=== PATIENT | male | born 1960 | race African-American/Black ===

== ENCOUNTER 2020-04-27 14:10 | Inpatient (IN) | payer BC, MEDICARE, SELFPAY ==
--- NOTE | ~2020-04-27 | CT_ITS ---
EXAMINATION: CT chest w con EXAM DATE: 04/28/2020 09:43 INDICATION: Nodule noted on chest x-ray. TECHNIQUE: Spiral CT of the chest following intravenous injection of 75 mL Omnipaque 350. Axial, cor onal and sagittal images were reviewed. Coronal maximum intensity pixel images of chest reviewed. T crystal dose-length product (DLP) for this examination was 364.17 mGy-cm. The exposure was tailored accor ding to patient size (auto mA exposure control), and iterative reconstruction (ASIR) was used as olayinka tional dose reduction technique. Correlation is made to chest x-ray 04/27/2020. FINDINGS: No intraparenchymal correlate to the chest x-ray finding. There is a 3 mm nodule along a l eft minor fissure anteriorly most likely postinfectious. Some small dependent atelectasis/scarring. There are no pleural or pericardial effusions. Tracheobronchial tree is patent. There is no media stinal, hilar or axillary lymphadenopathy. There is no pneumothorax. Heart normal in size. Ther e is mild to moderate coronary arterial calcification, arterial sclerosis. Upper abdomen is unremark able. There is mild thoracic spondylosis without osteoblastic or osteolytic lesions identified. IMPRESSION: Small post infectious residua. No suspicious lung findings. Reviewed, dictated and finalized at location A.
--- NOTE | ~2020-04-27 | XR_ITS ---
EXAMINATION: XR chest 1V portable INDICATION: Hyperglycemia and confusion TECHNIQUE: Portable AP chest at 1453 hours COMPARISON: 07/11/2015 FINDINGS: A nodular opacity projects in the right lateral lung base. There is no pleural effusion or pneumothorax. The cardiomediastinal silhouette is normal. The visualized bones and soft tissues are u nremarkable. IMPRESSION: 1. Nodular opacity projecting in the right lateral lung base. Follow-up with nonemergent CT of the ch est is recommended. Reviewed, dictated and finalized at location A. IMPRESSION: 1. Nodular opacity projecting in the right lateral lung base. Follow-up with no nemergent CT of the chest is recommended.
[2020-04-27 14:18] VITALS: BP 111/71; PULSE 122; RESP 22; TEMP 37.1; O2SAT 99
[2020-04-27 14:41] LABS: Glucose Point of Care > 500 (65-105)
[2020-04-27] MEDS: SODIUM CHLORIDE 0.9% IV 1,000 ML 999 ML (14:53)
[2020-04-27 15:06] LABS: Basophils Percent Auto 0.3 % (0.2-1.2); Eosinophils Percent Auto 0.1 % (0-4.4); Hemoglobin 9.7 g/dL (14.0-18.0); Immature Granulocyte Absolute 0.03 K/mm3 (0.00-0.031); Immature Granulocyte Percent A 0.4 % (0-0.5); Lymphocytes Absolute Auto 0.62 K/mm3 (0.9-3.2); Lymphocytes Percent Auto 8.4 % (18.3-44.2); Mean Corpuscular HGB Conc 32.3 g/dl (32-36); Mean Corpuscular Hemoglobin 26.8 pg (26-34); Mean Corpuscular Volume 82.9 fl (80-100); Mean Platelet Volume 11.7 fl (7.4-10.4); Monocytes Absolute Auto 0.2 K/mm3 (0.1-0.6); Neutrophils Absolute Auto 6.5 K/mm3 (1.3-6.7); Neutrophils Percent Auto 87.8 % (45.5-73.1); Platelet Count Result 224 k/mm3 (150-375); Red Blood Count 3.62 M/mm3 (4.6-6.20); Red Cell Distribution Width 13.9 % (11.5-14.5); White Blood Count 7.4 K/mm3 (4.5-10.0)
[2020-04-27 15:23] LABS: Alanine Aminotransferase 24 U/L (4-50); Albumin Level 4.4 g/dL (3.5-5.1); Alkaline Phosphatase 126 U/L (38-126); Anion Gap 24.5 mmol/L (7-16); Aspartate Amino Transferase 29 U/L (17-59); Bilirubin,Total 0.7 mg/dL (0.2-1.3); Blood Urea Nitrogen 46 mg/dL (9-20); Calcium 9.4 mg/dL (8.4-10.2); Carbon Dioxide 16 mmol/L (22-30); Chloride 95 mmol/L (98-107); Estimated CRCL calculation 47 ml/min; Estimated Glomerular Filt Rate 54; Glucose 612 mg/dL (75-110); Magnesium 2.2 mg/dL (1.6-2.3); Phosphorus 5.2 mg/dL (2.5-4.5); Potassium 5.5 mmol/L (3.4-5.0); Sodium 130 mmol/L (137-145)
--- NOTE | 2020-04-27 15:26 | ECG_ITS ---
Measurements Intervals [place] Rate: 123 P: 35 NE: 147 QRS: -24 QRSD: 77 T: 42 QT: 286 QTc: 410 Interpretive Statements SINUS TACHYCARDIA EARLY PRECORDIAL R/S TRANSITION LOW QRS VOLTAGE IN PRECORDIAL LEADS CONSIDER INFERIOR INFARCT, AGE INDETERMINATE BASELINE WANDER- AVF, V1-V3 ABNORMAL ECG Electronically Signed On 04-27-2020 20:53:42 CDT by Von Walters D.O.
--- NOTE | 2020-04-27 15:27 | ED.GENADULT ---
HPI - General Adult General Chief complaint: Recheck/Abnormal Lab/Rx <JULIANE Carpenter Last Filed: 04/27/20 16:43> Stated complaint: elevated blood sugar <JULIANE Carpenter Last Filed: 04/27/20 16:43> Time Seen by Provider: 04/27/20 14:49 <JULIANE Carpenter Last Filed: 04/27/20 16:43> Source: patient <JULIANE Carpenter Last Filed: 04/27/20 16:43> Mode of arrival: ambulatory <JULIANE Carpenter Last Filed: 04/27/20 16:43> Limitations: no limitations <JULIANE Carpenter Last Filed: 04/27/20 16:43> History of Present Illness HPI narrative: Patient is a 59-year-old male who presents with for evaluation of hyperglycemia patient had gone to a family gathering last night and then came home around 8:00 was there for 4 hours after which around midnight he was noted to have an elevated sugar gave insulin when she heard the alarm going off on his insulin pump and then this morning and was found to have elevated sugar again and brought him into the emergency department for evaluation. <JULIANE Carpenter Last Filed: 04/27/20 16:43> Related Data Home medications: Home Medications Medication Instructions Recorded Confirmed amlodipine 10 mg tablet 10 mg PO DAILY 09/24/19 04/27/20 cyanocobalamin (vitamin B-12) 1,000 mcg PO DAILY 09/24/19 04/27/20 1,000 mcg capsule donepezil 10 mg tablet 10 mg PO DAILY 09/24/19 04/27/20 duloxetine 30 mg capsule,delayed 30 mg PO DAILY 09/24/19 04/27/20 release sprinkle insulin lispro [Humalog U-100 50 sliding scale dose SUB-Q DAILY 04/27/20 04/27/20 Insulin] <JULIANE Carpenter Last Filed: 04/27/20 16:43> Allergies/adverse reactions: Allergies Allergy/AdvReac Type Severity Reaction Status Date / Time No Known Allergies Allergy Verified 04/27/20 14:35 <JULIANE Carpenter Last Filed: 04/27/20 16:43> Review of Systems Review of Systems: All systems reviewed & are unremarkable except as noted in HPI and below <Anjel Mansfield PA-C - Last Filed: 04/27/20 16:43> PMFSH Past Medical History Medical History: Medical History (Updated 04/27/20 @ 18:18 by Joanne Solorzano PA-C) Chronic kidney disease, stage 3 (moderate) Baseline creatinine is around 1.50. Depression Dyslipidemia Stroke Type 1 diabetes mellitus Hemoglobin A1c was 9.4% in September 2019. <Anjel Mansfield PA-C - Last Filed: 04/27/20 16:43> Social History Social History: Social History Smoking status: Never smoker Alcohol intake: current Substance use: never Gender identity (if verbalized by the patient): Male Spiritual care concerns: No <Anjel Mansfield PA-C - Last Filed: 04/27/20 16:43> Exam Narrative: Exam Narrative: GENERAL: Well-appearing, well-nourished, and in no acute distress. HEAD: Normocephalic, atraumatic. EYES: PERRLA and EOMI. ENT: Nares clear, no rhinorrhea or epistaxis. Mucous membranes moist. Oropharynx without tonsillar hypertrophy exudate or other lesions. NECK: Supple. CHEST: Clear to auscultation. No respiratory distress. No wheezes rales or rhonchi HEART: Regular rate and rhythm. No murmur heard. Normal peripheral pulses. ABDOMEN: Soft, nontender, nondistended EXTREMITIES: Normal range of motion. No edema. SKIN: Warm, dry, no rash. NEURO: No focal deficits. Alert and oriented x3. Cranial nerves II through XII grossly intact PSYCH: Normal mood and affect. <Anjel Mansfield PA-C - Last Filed: 04/27/20 16:43> Course Course Emergency Course: Patient hydrated in the emergency department patient given fluids patient afebrile nontoxic-appearing aware of discussion with the financial services auditor and hospitalist service will be kept in hospital had his insulin pump turned off will have the drip initiated. Patient nontoxic-appearing is noted agreeing to stay in hospital patient did not end
[2020-04-27] MEDS: SODIUM CHLORIDE 0.9% IV 1,000 ML 999 ML IV CONT ×2 (15:35→16:56)
[2020-04-27 15:53] LABS: Base Excess ABG -13.6 mEq/l (+/-2.0); Carboxyhemoglobin 0.3 % THb (0-2.0); Fractional Inspired Oxygen 21 %; HCO3 ABG 12.4 mEq/l (22.0-26.0); Methemoglobin ABG 0.2 %THb (0-1.5); Oxygen Saturation ABG 94.4 % (95.0-100.0); Oxyhemoglobin 93.4 % THb (90.0-100.0); PCO2 ABG 28.9 mmHg (35.0-45.0); PO2 ABG 81.1 mmHg (80.0-100.0); PO2 FiO2 Ratio Arterial Blood 3.86 %; Reduced Hemoglobin 6.1 %THb (0-5.0); Total Hemoglobin 9.8 g/dL (12.0-18.0)
[2020-04-27 15:55] LABS: pH ABG 7.249 (7.350-7.450)
[2020-04-27 15:56] LABS: Device ROOM AIR; Modified Allen's Test Pass; Site Drawn LEFT RADIAL
[2020-04-27 16:36] LABS: Creatine Kinase 160 U/L (55-170)
[2020-04-27 16:37] LABS: Ethanol < 10 mg/dL (<10)
[2020-04-27] MEDS: INSULIN HUMAN REGULAR (*BKC) 100 UNITS in SODIUM CHLORIDE 0.9% IV 99 ML 11 UNITS IV CONT (16:56)
[2020-04-27 16:58] VITALS: BP 129/74; PULSE 117; RESP 17; O2SAT 97
[2020-04-27 17:05] LABS: Add Urine Microscopic? YES; Appearance Urine Clear (Clear); Bilirubin Urine Negative (Negative); Blood Urine Negative (Negative); Color Urine Straw (Yellow); Glucose Urine UA 3+ mg/dL (Negative); Ketones Urine 1+ mg/dL (Negative); Leukocyte Esterase Ur Negative LEU/UL (Negative); Nitrate Urine Negative (Negative); Protein Urine 1+ mg/dL (Negative); RBC Urine 0-2 /hpf (0-2); Specific Grav Ur 1.014 (1.001-1.035); Urobilinogen Urine Negative mg/dL (<2.0)
[2020-04-27 17:21] LABS: Glucose Point of Care > 500 (65-105)
[2020-04-27 18:10] VITALS: BP 117/88; PULSE 119; PULSE 120; RESP 22; TEMP 36.7; O2SAT 99
[2020-04-27 18:14] VITALS: BMI 21.7
--- NOTE | 2020-04-27 18:14 | ADMGEN ---
This patient, Nehemias Muse, was admitted to Intensive Care Unit-5. Patient/family oriented to hospital policies and general routines including ID bracelet, bed and alarms, visiting hours, pain management, procedures, bathroom and other care routines, personal items, smoking policy, room service/diet, and visiting hours. Valuables list has been completed. Information on how to activate the Rapid Response Team has been discussed. Patient/Family are encouraged to report perceived risks to care and to ask questions if they do not understand what they are told or what they should do.
[2020-04-27] MEDS: LACTATED RINGERS 1,000 ML 125 ML IV CONT (18:21)
--- NOTE | 2020-04-27 18:30 | PM.IMHP ---
H&P: HPI History of Present Illness Chief complaint: Hyperglycemia. Narrative: Nehemias Muse is a 59-year-old male with type 1 diabetes mellitus, history of diabetic ketoacidosis, anemia, hypertension, hyperlipidemia, and chronic kidney disease who presented to the emergency department earlier this afternoon for evaluation of hyperglycemia. Yesterday afternoon he was at his niece's birthday alliance party and may have had some dietary indiscretion as later that evening he had several alerts for hyperglycemia on his glucometer. His bolused him with insulin each time however his glucose continue to be elevated this morning and thus he was brought in for evaluation. He was found to be in diabetic ketoacidosis and is being admitted in this setting. With further questioning he does mention mild blurry vision, polydipsia, and polyuria but he otherwise feels okay. Specifically he denies fever, chills, sweats, cold and flu symptoms, chest pain, shortness of breath, nausea, vomiting, diarrhea, and dysuria. He has not had any recent illnesses and he denies nonhealing wounds. Review of Systems Review of Systems: Narrative: Twelve systems were reviewed with pertinent positives and negatives as per HPI. He denies palpitations and feelings of racing heart. No chest pain or pleuritic pain. No cough or shortness of breath. No recent travel. He denies sick contacts. No exposure to those positive for COVID-19. Except as documented, all other systems were reviewed and are negative. [facility] Past Medical History Medical History (Updated 04/27/20 @ 20:25 by Joanne Solorzano PA-C) Anemia in chronic kidney disease Cardiac arrest (06/30/15) In the setting acute kidney injury and hyperkalemia. Chronic kidney disease, stage 3 (moderate) Baseline creatinine is around 1.50. Depression Dyslipidemia Essential hypertension Stroke With residual memory loss. Type 1 diabetes mellitus Hemoglobin A1c was 9.4% in September 2019. Surgical History Surgical History (Updated 04/27/20 @ 20:25 by Joanne Solorzano PA-C) History of cardiac catheterization (~06/2015) Clean coronary arteries. No history of previous surgery Family History Family History Sibling Diabetes mellitus Hypertension Asthma Cerebrovascular accident Family history of hepatitis Malignant neoplasm of prostate Family history of attention deficit hyperactivity disorder (ADHD) Father Family history of alcoholism Family history of malignant neoplasm Mother Family history of arthritis, Onset Age: 85 Family history of malignant neoplasm Family history of heart disease in male family member before age 55 Social History Social History (Updated 04/27/20 @ 20:16 by Joanne Solorzano PA-C) Social History: The patient is and lives at home with his in [place]. They have no children. 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 He is a lifelong nonsmoker and denies alcohol and illicit substance abuse. He designates his , Gely Muse, as his surrogate decision maker and he wishes to be a full code. Spiritual care concerns: No Meds Home Medications and Allergies Home Medications Medication Instructions Recorded Confirmed Type amlodipine 10 mg tablet 10 mg PO DAILY 09/24/19 04/27/20 History cyanocobalamin (vitamin B-12) 1,000 mcg PO DAILY 09/24/19 04/27/20 History 1,000 mcg capsule donepezil 10 mg tablet 10 mg PO DAILY 09/24/19 04/27/20 History duloxetine 30 mg capsule,delayed 30 mg PO DAILY 09/24/19 04/27/20 History release sprinkle pen needle, diabetic 31 gauge x #400 each 10/02/19 04/27/20 Rx /16 atorvastatin 80 mg tablet 80 mg PO DAILY #90 tablet 10/05/19 04/27/20 Rx carvedilol 6.25 mg tablet 6.25 mg PO Q12H #90 tablet 10/05/19 04/27/20 Rx lisinopril 5 mg tablet 5 mg PO DAILY #90 tablet 10/05/19 04/27/20 Rx blood-glucose meter #1 each 11/22/19 04/27/20 Rx hydrochlorot
[2020-04-27 19:19] LABS: Glucose Point of Care 463 (65-105)
[2020-04-27 19:19] LABS: Glucose Point of Care 443 (65-105)
[2020-04-27 20:00] VITALS: BP 132/70; PULSE 113; PULSE 115; RESP 19; TEMP 36.8; O2SAT 99
[2020-04-27 20:18] LABS: Glucose Point of Care 371 (65-105)
[2020-04-27 20:54] LABS: Anion Gap 18.2 mmol/L (7-16); Blood Urea Nitrogen 50 mg/dL (9-20); Carbon Dioxide 18 mmol/L (22-30); Chloride 101 mmol/L (98-107); Estimated CRCL calculation 42 ml/min; Estimated Glomerular Filt Rate 54; Glucose 368 mg/dL (75-110); Magnesium 2.1 mg/dL (1.6-2.3); Potassium 4.2 mmol/L (3.4-5.0); Sodium 133 mmol/L (137-145)
[2020-04-27] MEDS: FAMOTIDINE 20 MG/2 ML VIAL IV PUSH (21:08)
[2020-04-27 21:14] VITALS: PULSE 114
[2020-04-27 21:14] LABS: Glucose Point of Care 306 (65-105)
[2020-04-27] MEDS: carvediloL 6.25 MG TABLET PO (21:14)
[2020-04-27 22:00] VITALS: BP 124/75; PULSE 108; RESP 12; O2SAT 100
[2020-04-27] MEDS: INSULIN HUMAN REGULAR (*BKC) 100 UNITS in SODIUM CHLORIDE 0.9% IV 99 ML 12.2 UNITS IV CONT (22:17)
[2020-04-27] MEDS: KCL 20 MEQ/D5/0.45% SOD CHL 1,000 ML 150 ML IV CONT (22:17)
[2020-04-27 23:11] LABS: Glucose Point of Care 223 (65-105)
[2020-04-28] VITALS (11 sets, daily range): BP systolic 95–140; BP diastolic 54–77; PULSE 88–107; RESP 16–20; TEMP 36.6–37.2; O2SAT 95–99; BMI 21.9
[2020-04-28 00:16] LABS: Glucose Point of Care 234 (65-105)
[2020-04-28 00:22] LABS: Glucose Point of Care 193 (65-105)
[2020-04-28 00:54] LABS: Anion Gap 11.3 mmol/L (7-16); Blood Urea Nitrogen 45 mg/dL (9-20); Calcium 8.9 mg/dL (8.4-10.2); Carbon Dioxide 22 mmol/L (22-30); Chloride 107 mmol/L (98-107); Estimated CRCL calculation 48 ml/min; Estimated Glomerular Filt Rate > 60; Glucose 185 mg/dL (75-110); Potassium 4.3 mmol/L (3.4-5.0); Sodium 136 mmol/L (137-145)
[2020-04-28 01:21] LABS: Glucose Point of Care 143 (65-105)
[2020-04-28] MEDS: INSULIN GLARGINE (*BKC) 100 UNITS/ML 13 UNITS SUB-Q ×2 (02:00→20:05)
[2020-04-28 02:04] LABS: Glucose Point of Care 98 (65-105)
[2020-04-28 02:27] LABS: Beta-Hydroxybutyrate/Acetoacetate 6.05 mmol/L (0.02-0.27)
[2020-04-28 03:13] LABS: Glucose Point of Care 127 (65-105)
[2020-04-28 04:27] LABS: Basophils Percent Auto 0.5 % (0.2-1.2); Eosinophils Absolute Auto 0.1 K/mm3 (0-0.3); Eosinophils Percent Auto 1.3 % (0-4.4); Hematocrit 24.7 % (42.0-52.0); Hemoglobin 8.6 g/dL (14.0-18.0); Immature Granulocyte Absolute 0.02 K/mm3 (0.00-0.031); Immature Granulocyte Percent A 0.2 % (0-0.5); Lymphocytes Absolute Auto 1.24 K/mm3 (0.9-3.2); Lymphocytes Percent Auto 14.6 % (18.3-44.2); Mean Corpuscular HGB Conc 34.8 g/dl (32-36); Mean Corpuscular Hemoglobin 27.8 pg (26-34); Mean Corpuscular Volume 79.9 fl (80-100); Mean Platelet Volume 10.5 fl (7.4-10.4); Monocytes Absolute Auto 0.9 K/mm3 (0.1-0.6); Monocytes Percent Auto 10.6 % (2.6-8.5); Neutrophils Absolute Auto 6.2 K/mm3 (1.3-6.7); Neutrophils Percent Auto 72.8 % (45.5-73.1); Platelet Count Result 209 k/mm3 (150-375); Red Blood Count 3.09 M/mm3 (4.6-6.20); Red Cell Distribution Width 13.6 % (11.5-14.5); White Blood Count 8.5 K/mm3 (4.5-10.0)
[2020-04-28 04:51] LABS: Alanine Aminotransferase 23 U/L (4-50); Albumin Level 3.3 g/dL (3.5-5.1); Alkaline Phosphatase 71 U/L (38-126); Anion Gap 10.5 mmol/L (7-16); Aspartate Amino Transferase 34 U/L (17-59); Bilirubin,Total 0.2 mg/dL (0.2-1.3); Blood Urea Nitrogen 44 mg/dL (9-20); Calcium 8.8 mg/dL (8.4-10.2); Carbon Dioxide 22 mmol/L (22-30); Chloride 108 mmol/L (98-107); Estimated CRCL calculation 45 ml/min; Estimated Glomerular Filt Rate 58; Glucose 95 mg/dL (75-110); Potassium 4.5 mmol/L (3.4-5.0); Sodium 136 mmol/L (137-145)
[2020-04-28 05:07] LABS: Glucose Point of Care 63 (65-105)
[2020-04-28 05:58] LABS: Glucose Point of Care 77 (65-105)
[2020-04-28 08:05] LABS: Glucose Point of Care 128 (65-105)
[2020-04-28] MEDS: CYANOCOBALAMIN 1,000 MCG TABLET 1000 MCG PO (08:42)
[2020-04-28] MEDS: ATORVASTATIN 40 MG TABLET 80 MG PO (08:42)
[2020-04-28] MEDS: DULoxetine HCL 30 MG CAPSULE.DR PO (08:42)
[2020-04-28] MEDS: carvediloL 6.25 MG TABLET PO ×2 (08:42→20:06)
[2020-04-28] MEDS: DONEPEZIL HCL 10 MG TABLET PO (08:43)
[2020-04-28] MEDS: amLODIPine BESYLATE 5 MG TABLET 10 MG PO (08:43)
[2020-04-28] MEDS: ENOXAPARIN 40 MG/0.4 ML SYRINGE SUB-Q (08:46)
[2020-04-28] MEDS: INSULIN ASPART (*BKC) 100 UNITS/ML SUB-Q ×4 (08:50→17:14)
[2020-04-28] MEDS: FAMOTIDINE 20 MG/2 ML VIAL IV PUSH (08:51)
[2020-04-28 09:12] LABS: Anion Gap 14.7 mmol/L (7-16); Blood Urea Nitrogen 40 mg/dL (9-20); Calcium 8.8 mg/dL (8.4-10.2); Carbon Dioxide 19 mmol/L (22-30); Chloride 103 mmol/L (98-107); Estimated CRCL calculation 52 ml/min; Estimated Glomerular Filt Rate > 60; Glucose 125 mg/dL (75-110); Potassium 4.7 mmol/L (3.4-5.0); Sodium 132 mmol/L (137-145)
--- NOTE | 2020-04-28 10:45 | PC.NURSE ---
1039-Pt. transferred to [facility] via [facility]. Pt. stable upon transfer.
--- NOTE | 2020-04-28 10:45 | PC.NURSE ---
This patient, Nehemias Muse, was received from ICU on 04/28/20 at 1046. Personal belongings list checked and signed. Patient/family oriented to unit policies and routines
[2020-04-28 11:37] LABS: Hemoglobin A1C 9.7 % (<5.7)
[2020-04-28 11:52] LABS: Glucose Point of Care 194 (65-105)
--- NOTE | 2020-04-28 12:53 | WPDCNINT ---
Assessment and Plan Assessment and plan (1) Diabetic ketoacidosis: Qualifiers: Diabetes mellitus type: type 1 Diabetes mellitus complication detail: without coma Qualified Code(s): E10.10 - Type 1 diabetes mellitus with ketoacidosis without coma Code(s): E11.10 - Type 2 diabetes mellitus with ketoacidosis without coma Status: Acute Assessment and Plan: patient presented with hyperglycemia after having excess food at a birthday republican, patient was hyperglycemic and the did give him some insulin boluses despite which the blood sugars remained elevated any presented the ED where he was found to be in diabetic ketoacidosis. - Patient was given adequate IV fluids and started on insulin infusion. anion gap closed early this morning And patient was transition to long-acting insulin sliding scale insulin. Patient was started on a diabetic diet - hemoglobin A1c is 9.7 - will continue Lantus (2) [id number] kidney injury: Code(s): N17.9 - Acute kidney failure, unspecified; N18.9 - Chronic kidney disease, unspecified Status: Acute Assessment and Plan: patient with acute on chronic kidney disease likely related to polyuria, hypovolemia - patient was given adequate IV fluids - creatinine down this morning to 1.3 from 1.6 on admission (3) Anemia in chronic kidney disease: Code(s): N18.9 - Chronic kidney disease, unspecified; D63.1 - Anemia in chronic kidney disease Status: Acute Assessment and Plan: patient with anemia of chronic disease likely due to chronic kidney disease. (4) Abnormal chest x-ray: Code(s): R93.89 - Abnormal findings on diagnostic imaging of other specified body structures Status: Acute Assessment and Plan: Nodular opacity projecting in the right lateral lung base noted on chest x-ray. - CT scan of the chest with contrast on 04/28/2020 showed Nodular opacity projecting in the right lateral lung base noted on chest x-ray. Additional Plan discussed with patient and updated with his condition and plan of care. Code status: Full code Critical care time spent: 37 minutes Due to a high probability of clinically significant, life threatening deterioration, the patient required my highest level of preparedness to intervene emergently and I personally spent this critical care time directly and personally managing the patient. This critical care time included obtaining a history; examining the patient; pulse oximetry; ordering and review of studies; arranging urgent treatment with development of a management plan; evaluation of patient's response to treatment; frequent reassessment; and discussions with other providers. It was exclusive of separately billable procedures and treating other patients and teaching time. Please see Assessment and Plan section and the rest of the note for further information on patient assessment and treatment Air Crew Member Consult Note Consult date: 04/28/20 Time Seen: 07:04 Reason for consult: diabetic ketoacidosis with hyperglycemia HPI: Nehemias Muse is a 59 year old male with history of type 1 diabetes, history of diabetic ketoacidosis, anemia, essential hypertension, hyperlipidemia, chronic kidney disease presented to the ED on 04/27/2020 with evaluation for hyperglycemia. Patient was able at a birthday republican and had more food than normal. He was found to have hyperglycemia on his Glucometer. Did bolus him with insulin but his glucose continue to be elevated. In the ER he was found to be in diabetic ketoacidosis, was given IV fluids, started on insulin infusion and transferred to the ICU for further management. He did complain of polydipsia, polyuria and blurring of vision. He denies any fevers, chills, abdominal pain, shortness of breath, cough. Not had any recent illness patient seen and examined this morning. Patient transition to long-acting insulin and sliding scale insulin earlier in the
[2020-04-28 16:46] LABS: Glucose Point of Care 341 (65-105)
--- NOTE | 2020-04-28 17:19 | PCDIET ---
DR TEAGUE NOTIFIED OF GLUCOSE 341, NEW ORDERS RECEIVED
--- NOTE | 2020-04-28 19:06 | PM.IMPN ---
Progress Note: A&P Assessment and Plan (1) Diabetic ketoacidosis: Qualifiers: Diabetes mellitus complication detail: without coma Diabetes mellitus type: type 1 Qualified Code(s): E10.10 - Type 1 diabetes mellitus with ketoacidosis without coma Code(s): E11.10 - Type 2 diabetes mellitus with ketoacidosis without coma Status: Acute Assessment and Plan: Present on admission with hyperglycemia, metabolic acidosis, and positive urine ketones. He was started on IV fluids and insulin drip and admitted to ICU on DKA protocol. AG 24.5 on admission but gap closed. He was transtioned to Sq insulin. Resume pump when available to help (2) Type 1 diabetes mellitus: Code(s): E10.9 - Type 1 diabetes mellitus without complications Status: Acute Assessment and Plan: A1c 9.7. Resume insulin pump when available. (3) Abnormal chest x-ray: Code(s): R93.89 - Abnormal findings on diagnostic imaging of other specified body structures Status: Acute Assessment and Plan: Nodular opacity projecting in the right lateral lung base noted on chest x-ray. CT of the chest showing no suspicious lung fiindings. (4) Chronic kidney disease, stage 3 (moderate): Code(s): N18.3 - Chronic kidney disease, stage 3 (moderate) Status: Acute Assessment and Plan: Cr 1.6 on admission with baseline around 1.5 . Related to DKA. With IV fluids, Cr improved to 1.3 today. Continue to follow. (5) Anemia in chronic kidney disease: Code(s): N18.9 - Chronic kidney disease, unspecified; D63.1 - Anemia in chronic kidney disease Status: Acute Assessment and Plan: Hemoglobin 10.4 back in September. Iron studies consistent with anemia of chronic disease. B12 and folate level was normal at that time. Patient appears to have chronic anemia. (6) Electrolyte abnormality: Code(s): E87.8 - Other disorders of electrolyte and fluid balance, not elsewhere classified Status: Acute Assessment and Plan: Related to the DKA with hyponatremia, hyperkalemia and metabolic gap acidosis. Sodium improved and potassium normal. Anion gap has closed. Continue to follow. (7) Essential hypertension: Code(s): I10 - Essential (primary) hypertension Status: Acute Assessment and Plan: Blood pressure reviewed on 04/28/2020. Blood pressure soft at times but overall well controlled. Continue Coreg and Norvasc. Subjective Date/time seen: 04/28/20 19:06 Interval history: 59yo male with DM here for hyperglycemia and found to be in DKA. Patient is alert but mildly confused. He denies any chest pain or shortness of breath. No nausea or vomiting. Eating. Denies any headache. He is normally on insulin pump but his is the one who manages this for him. Exam Narrative: Exam Narrative: AF 106 111/62 20 95% ra Gen - NARD Chest - CTA bilaterally, nml RR CV - RRR S1/S2 Abd - Soft, NT/ND, Positive BS Ext - No pedal edema Neuro - Alert and orientedx2 (location and Yr but not month or Maribel). Psych - Nml mood and affect Skin - Warm and dry Objective Data Vital Signs Vital Signs: Vital Signs - 24 hr 04/27/20 20:00 04/27/20 21:14 04/27/20 22:00 Temperature 98.3 F Pulse Rate 113 H 114 H 108 H Respiratory Rate 19 12 Blood Pressure 132/70 124/75 Pulse Oximetry 99 100 04/28/20 00:00 04/28/20 02:00 04/28/20 04:00 Temperature 98 F 98.9 F Pulse Rate 95 101 H 90 Respiratory Rate 16 19 16 Blood Pressure 95/54 L 118/77 96/59 L Pulse Oximetry 97 97 97
[2020-04-28 20:49] LABS: Glucose Point of Care 348 (65-105)
[2020-04-29] VITALS: BP 106/58; PULSE 98; RESP 18; TEMP 37; O2SAT 94
[2020-04-29] MEDS: INSULIN ASPART (*BKC) 100 UNITS/ML 10 UNITS SUB-Q (00:27)
[2020-04-29 00:44] LABS: Glucose Point of Care 387 (65-105)
[2020-04-29 02:51] LABS: Glucose Point of Care 234 (65-105)
[2020-04-29 05:58] VITALS: BP 115/67; PULSE 95; RESP 18; TEMP 36.5; O2SAT 95
[2020-04-29 07:44] LABS: Glucose Point of Care 128 (65-105)
[2020-04-29] MEDS: INSULIN ASPART (*BKC) 100 UNITS/ML SUB-Q (07:54)
[2020-04-29 08:00] VITALS: PULSE 92
[2020-04-29] MEDS: carvediloL 6.25 MG TABLET PO (08:00)
[2020-04-29 08:01] LABS: Anion Gap 10.1 mmol/L (7-16); Blood Urea Nitrogen 35 mg/dL (9-20); Calcium 8.9 mg/dL (8.4-10.2); Carbon Dioxide 23 mmol/L (22-30); Chloride 107 mmol/L (98-107); Estimated CRCL calculation 44 ml/min; Estimated Glomerular Filt Rate 54; Glucose 118 mg/dL (75-110); Potassium 4.1 mmol/L (3.4-5.0); Sodium 136 mmol/L (137-145)
[2020-04-29] MEDS: ENOXAPARIN 40 MG/0.4 ML SYRINGE SUB-Q (08:01)
[2020-04-29] MEDS: CYANOCOBALAMIN 1,000 MCG TABLET 1000 MCG PO (08:01)
[2020-04-29] MEDS: DULoxetine HCL 30 MG CAPSULE.DR PO (08:01)
[2020-04-29] MEDS: amLODIPine BESYLATE 5 MG TABLET 10 MG PO (08:01)
[2020-04-29] MEDS: DONEPEZIL HCL 10 MG TABLET PO (08:01)
[2020-04-29] MEDS: FAMOTIDINE 20 MG/2 ML VIAL IV PUSH (08:01)
[2020-04-29] MEDS: ATORVASTATIN 40 MG TABLET 80 MG PO (08:01)
[2020-04-29 11:26] LABS: Glucose Point of Care 163 (65-105)
[2020-04-29 13:23] VITALS: BP 126/62; PULSE 87; RESP 18; TEMP 36.4; O2SAT 98
--- NOTE | 2020-04-29 15:51 | PM.DS ---
DS: Admitting Diagnosis Admitting Diagnosis Admitting Diagnosis: Type 2 diabetes mellitus with ketoacidosis without coma DS: Discharge Diagnosis Discharge Diagnosis (1) Diabetic ketoacidosis: Qualifiers: Diabetes mellitus type: type 1 Diabetes mellitus complication detail: without coma Qualified Code(s): E10.10 - Type 1 diabetes mellitus with ketoacidosis without coma Code(s): E11.10 - Type 2 diabetes mellitus with ketoacidosis without coma Status: Acute Assessment and Plan: ------Present on admission with hyperglycemia, metabolic acidosis, and positive urine ketones. Likely due to dietary discretion. He was started on IV fluids and insulin drip and admitted to ICU on DKA protocol. Patient improved with this therapy and was able to be transferred out of the ICU. His gap closed the next day. His brought up his insulin pump. 12-6a he gets 0.5 units/hour, 6a 2000- 0.6 units/hour, [id number] 0.75 units/hour. She also does a carb ratio where she estimates the amount of carbs and places them into a category of low medium and high and boluses depending on that. His A1c is 9.7 in the routinely follow Dr. Kline. the plan is to follow-up with them and no additional changes will be done at this time. (2) Type 1 diabetes mellitus: Code(s): E10.9 - Type 1 diabetes mellitus without complications Status: Acute Assessment and Plan: ----- See above (3) Abnormal chest x-ray: Code(s): R93.89 - Abnormal findings on diagnostic imaging of other specified body structures Status: Acute Assessment and Plan: Nodular opacity projecting in the right lateral lung base noted on chest x-ray. CT of the chest showing no suspicious lung fiindings. (4) Chronic kidney disease, stage 3 (moderate): Code(s): N18.3 - Chronic kidney disease, stage 3 (moderate) Status: Acute Assessment and Plan: Cr 1.6 on admission with baseline around 1.5 . chronic kidney disease likely due to longstanding diabetes. Patient at baseline at discharge (5) Anemia in chronic kidney disease: Code(s): N18.9 - Chronic kidney disease, unspecified; D63.1 - Anemia in chronic kidney disease Status: Acute Assessment and Plan: Hemoglobin 10.4 back in September. Iron studies consistent with anemia of chronic disease. B12 and folate level was normal at that time. Patient appears to have chronic anemia. (6) Electrolyte abnormality: Code(s): E87.8 - Other disorders of electrolyte and fluid balance, not elsewhere classified Status: Acute Assessment and Plan: ----- improved, likely due to DKA on admission (7) Essential hypertension: Code(s): I10 - Essential (primary) hypertension Status: Acute Assessment and Plan: last blood pressure 126/62.Continue Coreg and Norvasc. DS: Summary Hospital Course Reason for hospitalization: DKA Hospital Course: patient is a 59-year-old male who presented emergency room for multiple episodes of hyperglycemia after being at a family gathering and eating more carbs than usual. The tried to bolus him at home but he still remained high so they came into the emergency room. Vital signs were temperature 98.8?, pulse 122, respiratory 22, blood pressure 111/71, pulse ox 99 on room air. Initial white blood cell count 7.4. BMP shows significant abnormalities with sodium 130, potassium 5.5, chloride 95, CO2 16, BUN Soledad 6 creatinine 1.6, glucose 612. Anion gap originally 24.5. Patient was admitted to the ICU and started on IV fluids, insulin and electrolytes were replaced. He did well with this therapy and his gap closed. He was able to transfer out of the ICU and did well. Please see above for further details. Patient was educated about the worrisome signs and symptoms come back to emergency room for was discharged stable condition. I spoke to on the phone as well.
== END 2020-04-29 18:07 | disposition home or self-care (01) | DRG 638 ==
LOC: ANHED 17:20 → ANHICU 17:32 → ANH2MED 04-28 12:57 → ANHICU 05-01 16:57
PROVIDERS: Emergency Medicine Emergency Medical Services; Internal Medicine; Internal Medicine Critical Care Medicine; Physician Assistant; Admitting Provider Family Medicine; Emergency Provider General Practice; PCP Internal Medicine; Visit Provider Physician Assistant
DX: E10.10 Type 1 diabetes mellitus with ketoacidosis without coma (principal); N17.9 Acute kidney failure, unspecified; D63.1 Anemia in chronic kidney disease; E87.8 Other disorders of electrolyte and fluid balance, not elsewhere classified; E10.22 Type 1 diabetes mellitus with diabetic chronic kidney disease; I12.9 Hypertensive chronic kidney disease with stage 1 through stage 4 chronic kidney disease, or unspecified chronic kidney disease; N18.3 Chronic kidney disease, stage 3 (moderate); E86.0 Dehydration; R93.89 Abnormal findings on diagnostic imaging of other specified body structures; E78.5 Hyperlipidemia, unspecified; I69.311 Memory deficit following cerebral infarction; Z79.4 Long term (current) use of insulin; Z96.41 Presence of insulin pump (external) (internal); Z86.74 Personal history of sudden cardiac arrest
CPT/HCPCS: 36415; 36600; 71045; 71260; 80048; 80053; 80307; 81001; 82010; 82375; 82550; 82805; 82948; 83036; 83050; 83735; 84100; 85025; 93005; 96361; 96365; 99291; A9270; J1650; J1815; J3480; J7030; J7120; Q9967

== ENCOUNTER 2020-04-30 23:26 | Inpatient (IN) | payer BC, MEDICARE, SELFPAY ==
[2020-04-30 23:34] VITALS: BP 137/73; PULSE 103; RESP 20; TEMP 36.9; O2SAT 96
[2020-04-30 23:40] LABS: Glucose Point of Care > 500 (65-105)
[2020-05-01] VITALS (14 sets, daily range): BP systolic 115–155; BP diastolic 61–99; PULSE 83–109; RESP 16–24; TEMP 36.6–37; O2SAT 94–100; BMI 20.9
--- NOTE | 2020-05-01 00:06 | ED.RECABL ---
HPI - Recheck/Abnormal Lab/Rx General Chief Complaint: Recheck/Abnormal Lab/Rx Stated Complaint: High blood sugar Time Seen by Provider: 04/30/20 23:38 Source: family Mode of arrival: ambulatory Limitations: dementia History of Present Illness HPI narrative: This patient is a 59 year old male who presents for evaluation high blood sugar. He was discharged yesterday after being hospitalized for DKA an hyperglycemia. PAtient started using an insulin pump 1 month ago that is controlled by his . His states today his blood sugars has been high all day. This morning she reports his blood sugar was reading 50 so she gave him juice and made breakfast. She states around 730 am this morning her blood sugar increased to 253. His blood sugar has been high all day since. Patient has basal insulin rate of 0.6 units per hour. His states she has given him insulin bolus 6 units at 6 pm and 6 units at 7 pm. His blood sugar continues to run high. Patient has no complaints . His states she still does not know how much insulin she should be giving him. Related Data Home Medications Medication Instructions Recorded Confirmed amlodipine 10 mg tablet 10 mg PO DAILY 09/24/19 05/01/20 cyanocobalamin (vitamin B-12) 1,000 mcg PO DAILY 09/24/19 05/01/20 1,000 mcg capsule donepezil 10 mg tablet 10 mg PO DAILY 09/24/19 05/01/20 duloxetine 30 mg capsule,delayed 30 mg PO DAILY 09/24/19 05/01/20 release sprinkle insulin lispro [Humalog U-100 50 sliding scale dose SUB-Q DAILY 04/27/20 05/01/20 Insulin] Allergies Allergy/AdvReac Type Severity Reaction Status Date / Time No Known Allergies Allergy Verified 04/27/20 14:35 Review of Systems Review of Systems: All systems reviewed & are unremarkable except as noted in HPI and below Constitutional: Constitutional: Denies chills and Denies fever(s) Cardiovascular: Cardiovascular: Denies chest pain Respiratory: Respiratory: Denies cough, Denies dyspnea and Denies wheezing Gastrointestinal: Gastrointestinal: Denies abdominal pain, Denies diarrhea, Denies nausea and Denies vomiting PMF Past Medical History Medical History (Updated 05/01/20 @ 05:06 by Fiona Del Cid MD) Anemia in chronic kidney disease Cardiac arrest (06/30/15) In the setting acute kidney injury and hyperkalemia. Chronic kidney disease, stage 3 (moderate) Baseline creatinine is around 1.50. Depression Dyslipidemia Essential hypertension Stroke With residual memory loss. Type 1 diabetes mellitus Hemoglobin A1c was 9.4% in September 2019. Surgical History Surgical History (Updated 04/27/20 @ 20:25 by Joanne Solorzano PA-C) History of cardiac catheterization (~06/2015) Clean coronary arteries. No history of previous surgery Social History Social History (Updated 04/27/20 @ 20:16 by Joanne Solorzano PA-C) Social History: The patient is and lives at home with his in [place]. They have no children. 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 He is a lifelong nonsmoker and denies alcohol and illicit substance abuse. He designates his , Gely Muse, as his surrogate decision maker and he wishes to be a full code. Smoking status: Never smoker Alcohol intake: never Substance use: never Gender identity (if verbalized by the patient): Male Spiritual care concerns: No Exam Narrative: Exam Narrative: GENERAL: Well-appearing, well-nourished, and in no acute distress. HEAD: Normocephalic, atraumatic EYES: PERRLA and EOMI, conjunctiva clear without discharge THROAT:Mucous membranes moist, Oropharynx normal without erythema, exudate, peritonsillar swelling or fluctuance NECK: Supple, without lymphadenopathy or mass RESPIRATORY: No respiratory distress, Airway patent, Respirations non-labored, Clear to auscultation without rales, rhonchi or wheeze HEART: Regular rate and rhythm. No murmur heard. Normal peripheral pulses. ABDOME
[2020-05-01] MEDS: SODIUM CHLORIDE 0.9% IV 1,000 ML 999 ML IV CONT ×2 (00:24)
--- NOTE | 2020-05-01 00:24 | PC.NURSE ---
RN asked pt for urine sample. pt reports he cannot go at this time.
[2020-05-01 00:27] LABS: Alveolar/Arterial O2 Gradient 41.5 mmHg; Base Excess ABG -7.5 mEq/l (+/-2.0); Carboxyhemoglobin 0.3 % THb (0-2.0); Fractional Inspired Oxygen 21 %; HCO3 ABG 17.7 mEq/l (22.0-26.0); Methemoglobin ABG 0.2 %THb (0-1.5); Oxygen Content ABG 11.6 %vol (16.0-22.0); Oxygen Saturation ABG 92.3 % (95.0-100.0); Oxyhemoglobin 90.8 % THb (90.0-100.0); PCO2 ABG 34.4 mmHg (35.0-45.0); PO2 FiO2 Ratio Arterial Blood 3.19 %; Reduced Hemoglobin 8.7 %THb (0-5.0); pH ABG 7.329 (7.350-7.450)
[2020-05-01 00:28] LABS: Device ROOM AIR; Site Drawn RIGHT BRACHIAL
[2020-05-01 00:36] LABS: Basophils Percent Auto 0.7 % (0.2-1.2); Eosinophils Absolute Auto 0.1 K/mm3 (0-0.3); Eosinophils Percent Auto 2.2 % (0-4.4); Hematocrit 25.6 % (42.0-52.0); Hemoglobin 8.6 g/dL (14.0-18.0); Immature Granulocyte Absolute 0.01 K/mm3 (0.00-0.031); Immature Granulocyte Percent A 0.2 % (0-0.5); Lymphocytes Absolute Auto 0.87 K/mm3 (0.9-3.2); Lymphocytes Percent Auto 21.3 % (18.3-44.2); Mean Corpuscular HGB Conc 33.6 g/dl (32-36); Mean Corpuscular Hemoglobin 27.2 pg (26-34); Mean Platelet Volume 11.7 fl (7.4-10.4); Monocytes Absolute Auto 0.4 K/mm3 (0.1-0.6); Monocytes Percent Auto 10.5 % (2.6-8.5); Neutrophils Absolute Auto 2.7 K/mm3 (1.3-6.7); Neutrophils Percent Auto 65.1 % (45.5-73.1); Platelet Count Result 170 k/mm3 (150-375); Red Blood Count 3.16 M/mm3 (4.6-6.20); Red Cell Distribution Width 13.7 % (11.5-14.5); White Blood Count 4.1 K/mm3 (4.5-10.0)
[2020-05-01 00:57] LABS: Alanine Aminotransferase 24 U/L (4-50); Albumin Level 3.7 g/dL (3.5-5.1); Alkaline Phosphatase 121 U/L (38-126); Anion Gap 19.4 mmol/L (7-16); Aspartate Amino Transferase 28 U/L (17-59); Bilirubin,Total 0.5 mg/dL (0.2-1.3); Blood Urea Nitrogen 46 mg/dL (9-20); Calcium 8.5 mg/dL (8.4-10.2); Carbon Dioxide 20 mmol/L (22-30); Chloride 95 mmol/L (98-107); Estimated CRCL calculation 35 ml/min; Estimated Glomerular Filt Rate 39; Glucose 672 mg/dL (75-110); Potassium 5.4 mmol/L (3.4-5.0); Sodium 129 mmol/L (137-145)
[2020-05-01 01:44] LABS: Add Urine Microscopic? YES; Appearance Urine Clear (Clear); Bacteria Urine Trace /hpf; Bilirubin Urine Negative (Negative); Blood Urine Negative (Negative); Color Urine Colorless (Yellow); Glucose Urine UA 3+ mg/dL (Negative); Ketones Urine Trace mg/dL (Negative); Leukocyte Esterase Ur Negative LEU/UL (Negative); Mucus Urine Rare /lpf; Nitrate Urine Negative (Negative); Protein Urine Negative (Negative); Specific Grav Ur 1.014 (1.001-1.035); Urobilinogen Urine Negative mg/dL (<2.0)
[2020-05-01 01:53] LABS: Glucose Point of Care > 500 (65-105)
[2020-05-01 02:19] LABS: Beta-Hydroxybutyrate/Acetoacetate 5.12 mmol/L (0.02-0.27)
[2020-05-01] MEDS: INSULIN HUMAN REGULAR (*BKC) 100 UNITS/ML 7 UNITS IV PUSH (02:36)
[2020-05-01 02:40] LABS: Glucose Point of Care > 500 (65-105)
[2020-05-01 03:37] LABS: Glucose Point of Care > 500 (65-105)
[2020-05-01 03:38] LABS: Anion Gap 20.9 mmol/L (7-16); Blood Urea Nitrogen 45 mg/dL (9-20); Calcium 8.4 mg/dL (8.4-10.2); Carbon Dioxide 14 mmol/L (22-30); Chloride 101 mmol/L (98-107); Estimated CRCL calculation 37 ml/min; Estimated Glomerular Filt Rate 42; Glucose 639 mg/dL (75-110); Potassium 4.9 mmol/L (3.4-5.0); Sodium 131 mmol/L (137-145)
[2020-05-01] MEDS: INSULIN HUMAN REGULAR (*BKC) 100 UNITS in SODIUM CHLORIDE 0.9% IV 99 ML 10 UNITS IV CONT (03:40)
[2020-05-01 04:16] LABS: Glucose Point of Care > 500 (65-105)
--- NOTE | 2020-05-01 04:16 | PC.NURSE ---
This patient, Nehemias Muse, was admitted to Intensive Care Unit-8. Patient/family oriented to hospital policies and general routines including ID bracelet, bed and alarms, visiting hours, pain management, procedures, bathroom and other care routines, personal items, smoking policy, room service/diet, and visiting hours. Valuables list has been completed. Information on how to activate the Rapid Response Team has been discussed. Patient/Family are encouraged to report perceived risks to care and to ask questions if they do not understand what they are told or what they should do.
[2020-05-01] MEDS: SODIUM CHLORIDE 0.9% IV 1,000 ML 150 ML IV CONT (04:27)
[2020-05-01 05:20] LABS: Glucose 471 mg/dL (75-110)
[2020-05-01 05:38] LABS: Glucose Point of Care 392 (65-105)
[2020-05-01 06:33] LABS: Glucose Point of Care 296 (65-105)
[2020-05-01 07:30] LABS: Anion Gap 12.2 mmol/L (7-16); Blood Urea Nitrogen 46 mg/dL (9-20); Calcium 8.7 mg/dL (8.4-10.2); Carbon Dioxide 22 mmol/L (22-30); Chloride 105 mmol/L (98-107); Estimated CRCL calculation 37 ml/min; Estimated Glomerular Filt Rate 44; Glucose 320 mg/dL (75-110); Potassium 4.2 mmol/L (3.4-5.0); Sodium 135 mmol/L (137-145)
[2020-05-01 07:39] LABS: Glucose Point of Care 204 (65-105)
[2020-05-01] MEDS: KCL 20 MEQ/D5/0.45% SOD CHL 1,000 ML 150 ML IV CONT (07:51)
[2020-05-01 08:34] LABS: Glucose Point of Care 149 (65-105)
[2020-05-01 09:37] LABS: Glucose Point of Care 114 (65-105)
[2020-05-01 10:28] LABS: Glucose Point of Care 71 (65-105)
[2020-05-01 10:41] LABS: Anion Gap 9.2 mmol/L (7-16); Blood Urea Nitrogen 39 mg/dL (9-20); Calcium 8.7 mg/dL (8.4-10.2); Carbon Dioxide 25 mmol/L (22-30); Chloride 108 mmol/L (98-107); Estimated CRCL calculation 41 ml/min; Estimated Glomerular Filt Rate 50; Glucose 83 mg/dL (75-110); Potassium 4.2 mmol/L (3.4-5.0); Sodium 138 mmol/L (137-145)
[2020-05-01] MEDS: INSULIN DETEMIR 100 UNITS/ML 18 UNITS SUB-Q (11:10)
[2020-05-01 12:03] LABS: Glucose Point of Care 105 (65-105)
--- NOTE | 2020-05-01 13:29 | WPDCNINT ---
Assessment and Plan Assessment and plan (1) Diabetic ketoacidosis: Qualifiers: Diabetes mellitus type: type 1 Diabetes mellitus complication detail: without coma Qualified Code(s): E10.10 - Type 1 diabetes mellitus with ketoacidosis without coma Code(s): E11.10 - Type 2 diabetes mellitus with ketoacidosis without coma Status: Acute Assessment and Plan: patient presented with hyperglycemia despite being on insulin pump. I am afraid that the patient and the do not know how to use the pump. Patient was last here for DKA on 04/27/2020. - Patient received IV fluids in the ER started insulin drip. Anion gap this morning is closed,. - transitioned patient to long-acting insulin and sliding scale insulin - on diabetic diet hemoglobin A1c this admission is 10.0 on 05/01/2020 (2) Anemia in chronic kidney disease: Qualifiers: Chronic kidney disease stage: unspecified stage Qualified Code(s): N18.9 - Chronic kidney disease, unspecified; D63.1 - Anemia in chronic kidney disease Code(s): N18.9 - Chronic kidney disease, unspecified; D63.1 - Anemia in chronic kidney disease Status: Acute Assessment and Plan: likely due to chronic kidney disease, hemoglobin is stable - continue to monitor (3) Hdjhu-mm-lcljrah kidney injury: Qualifiers: Acute renal failure type: unspecified Chronic kidney disease stage: unspecified stage Qualified Code(s): N17.9 - Acute kidney failure, unspecified; N18.9 - Chronic kidney disease, unspecified Code(s): N17.9 - Acute kidney failure, unspecified; N18.9 - Chronic kidney disease, unspecified Status: Acute Assessment and Plan: patient with acute on chronic kidney injury, likely related to DKA, polyuria, hypovolemia. - Creatinine trending down to 1.7 from 2.10 on admission - continue to monitor renal function, electrolytes and urine output (4) Essential hypertension: Code(s): I10 - Essential (primary) hypertension Status: Acute Assessment and Plan: blood pressure stable at this time, hold hydrochlorothiazide, lisinopril, amlodipine, carvedilol Additional Plan discussed with patient and updated with his condition and plan of care. Code status: Full code critical care time spent: 43 minutes patient will be transferred to medical floor Due to a high probability of clinically significant, life threatening deterioration, the patient required my highest level of preparedness to intervene emergently and I personally spent this critical care time directly and personally managing the patient. This critical care time included obtaining a history; examining the patient; pulse oximetry; ordering and review of studies; arranging urgent treatment with development of a management plan; evaluation of patient's response to treatment; frequent reassessment; and discussions with other providers. It was exclusive of separately billable procedures and treating other patients and teaching time. Please see Assessment and Plan section and the rest of the note for further information on patient assessment and treatment World Designer Consult Note Consult date: 05/01/20 Time Seen: 07:15 Reason for consult: diabetic ketoacidosis with hyperglycemia HPI: Nehemias Muse is a 59 year old male with history of type 1 diabetes, history of diabetic ketoacidosis, anemia, essential hypertension, hyperlipidemia, chronic kidney disease , cardiac arrest, stroke with residual memory loss, depression presented to the ED on 04/30/2020 with complains of hyper glycemia. According the patient and his but sugars had been elevated all day on the day of admission. Patient was given insulin bolus 6 units x 2 in the evening on the day of admission but the blood sugars remained high. According to the she does not know how to use the insulin pump. Patient was given IV fluids and started the insulin infusion in the ER, patient was transf
[2020-05-01 15:13] LABS: Anion Gap 8.9 mmol/L (7-16); Blood Urea Nitrogen 37 mg/dL (9-20); Calcium 8.5 mg/dL (8.4-10.2); Carbon Dioxide 26 mmol/L (22-30); Chloride 105 mmol/L (98-107); Estimated CRCL calculation 47 ml/min; Estimated Glomerular Filt Rate 58; Glucose 246 mg/dL (75-110); Potassium 4.9 mmol/L (3.4-5.0); Sodium 135 mmol/L (137-145)
[2020-05-01 16:38] LABS: Glucose Point of Care 202 (65-105)
[2020-05-01] MEDS: INSULIN ASPART (*BKC) 100 UNITS/ML SUB-Q (16:38)
--- NOTE | 2020-05-01 17:27 | PM.IMHP ---
H&P: HPI History of Present Illness Chief complaint: DKA, acute renal failure Narrative: Nehemias Muse is a 59-year-old male with type 1 diabetes mellitus, history of diabetic ketoacidosis, anemia, hypertension, hyperlipidemia, and chronic kidney disease who presented to the emergency department in DKA. Pt is here again with DKA, in ICU, off insulin drip now. Pt states he was out at a birthday democr[employer] and ate too much food. Pt sugars are 200 presently. Pt denies sob, chest pain, abdominal pain. Pt uses insulin pump, is managing it as he has memory issues. Pt has being going to parties and drinking alcholol likley cause of his hyperglycemia. Pt was here with DKA on 04/27. Review of Systems Review of Systems: All systems reviewed & are unremarkable except as noted in HPI and below PMFSH Past Medical History Medical History Anemia in chronic kidney disease Cardiac arrest (06/30/15) In the setting acute kidney injury and hyperkalemia. Chronic kidney disease, stage 3 (moderate) Baseline creatinine is around 1.50. Depression Dyslipidemia Essential hypertension Stroke With residual memory loss. Type 1 diabetes mellitus Hemoglobin A1c was 9.4% in September 2019. Surgical History Surgical History History of cardiac catheterization (~06/2015) Clean coronary arteries. No history of previous surgery Family History Family History Sibling Diabetes mellitus Hypertension Asthma Cerebrovascular accident Family history of hepatitis Malignant neoplasm of prostate Family history of attention deficit hyperactivity disorder (ADHD) Father Family history of alcoholism Family history of malignant neoplasm Mother Family history of arthritis, Onset Age: 85 Family history of malignant neoplasm Family history of heart disease in male family member before age 55 Social History Social History Social History: The patient is and lives at home with his in [place]. They have no children. 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 He is a lifelong nonsmoker and denies alcohol and illicit substance abuse. He designates his , Gely Muse, as his surrogate decision maker and he wishes to be a full code. Smoking status: Never smoker Alcohol intake: never Substance use: never Gender identity (if verbalized by the patient): Male Spiritual care concerns: No Meds Home Medications and Allergies Home Medications Medication Instructions Recorded Confirmed Type amlodipine 10 mg tablet 10 mg PO DAILY 09/24/19 05/01/20 History cyanocobalamin (vitamin B-12) 1,000 mcg PO DAILY 09/24/19 05/01/20 History 1,000 mcg capsule donepezil 10 mg tablet 10 mg PO DAILY 09/24/19 05/01/20 History duloxetine 30 mg capsule,delayed 30 mg PO DAILY 09/24/19 05/01/20 History release sprinkle pen needle, diabetic 31 gauge x #400 each 10/02/19 04/27/20 Rx 5/16 atorvastatin 80 mg tablet 80 mg PO DAILY #90 tablet 10/05/19 05/01/20 Rx carvedilol 6.25 mg tablet 6.25 mg PO Q12H #90 tablet 10/05/19 05/01/20 Rx lisinopril 5 mg tablet 5 mg PO DAILY #90 tablet 10/05/19 05/01/20 Rx blood-glucose meter #1 each 11/22/19 04/27/20 Rx hydrochlorothiazide 25 mg tablet 25 mg PO DAILY #90 tablet 11/29/19 05/01/20 Rx blood sugar diagnostic #300 each 02/01/20 04/27/20 Rx insulin pump cartridge #5 each 04/11/20 04/27/20 Rx insulin lispro [Humalog U-100 50 sliding scale dose SUB-Q DAILY 04/27/20 05/01/20 History Insulin] Allergies Allergy/AdvReac Type Severity Reaction Status Date / Time No Known Allergies Allergy Verified 04/27/20 14:35 Vital Signs Vital Signs - 24 hr 04/30/20 23:34 05/01/20 01:15 05/01/20 01:31 Temperature 36.9 C Pulse Rate 103 H 98 101 H Respiratory Rate 20 18 17
--- NOTE | 2020-05-01 18:27 | PC.NURSE ---
This patient, Nehemias Muse, was transferred to [[id number]] on 05/01/20 at 1827. Personal belongings sent with patient. Report given to [Nathalie DELGADO]. Appropriate documentation sent with patient.
--- NOTE | 2020-05-01 18:50 | PC.NURSE ---
This patient, Nehemias Muse, was received from IMU on 05/01/20 at 1840. Personal belongings list checked and signed. Patient/family oriented to unit policies and routines
[2020-05-02] MEDS: INSULIN DETEMIR 100 UNITS/ML 18 UNITS SUB-Q (00:02)
[2020-05-02 00:03] VITALS: PULSE 83
[2020-05-02] MEDS: carvediloL 6.25 MG TABLET PO ×2 (00:03→07:59)
[2020-05-02 00:11] LABS: Glucose Point of Care 163 (65-105)
[2020-05-02 05:25] LABS: Basophils Percent Auto 0.4 % (0.2-1.2); Eosinophils Absolute Auto 0.2 K/mm3 (0-0.3); Eosinophils Percent Auto 4.2 % (0-4.4); Hematocrit 24.3 % (42.0-52.0); Hemoglobin 8.2 g/dL (14.0-18.0); Immature Granulocyte Absolute 0.01 K/mm3 (0.00-0.031); Immature Granulocyte Percent A 0.2 % (0-0.5); Lymphocytes Absolute Auto 1.54 K/mm3 (0.9-3.2); Lymphocytes Percent Auto 30.5 % (18.3-44.2); Mean Corpuscular HGB Conc 33.7 g/dl (32-36); Mean Corpuscular Hemoglobin 26.7 pg (26-34); Mean Corpuscular Volume 79.2 fl (80-100); Mean Platelet Volume 10.8 fl (7.4-10.4); Monocytes Absolute Auto 0.5 K/mm3 (0.1-0.6); Monocytes Percent Auto 9.9 % (2.6-8.5); Neutrophils Absolute Auto 2.8 K/mm3 (1.3-6.7); Neutrophils Percent Auto 54.8 % (45.5-73.1); Platelet Count Result 207 k/mm3 (150-375); Red Blood Count 3.07 M/mm3 (4.6-6.20); Red Cell Distribution Width 13.3 % (11.5-14.5); White Blood Count 5.1 K/mm3 (4.5-10.0)
[2020-05-02 05:57] LABS: Anion Gap 7.9 mmol/L (7-16); Blood Urea Nitrogen 25 mg/dL (9-20); Calcium 8.8 mg/dL (8.4-10.2); Carbon Dioxide 26 mmol/L (22-30); Chloride 108 mmol/L (98-107); Estimated CRCL calculation 50 ml/min; Estimated Glomerular Filt Rate > 60; Glucose 83 mg/dL (75-110); Phosphorus 3.7 mg/dL (2.5-4.5); Potassium 3.9 mmol/L (3.4-5.0); Sodium 138 mmol/L (137-145)
[2020-05-02 06:07] VITALS: BP 133/67; PULSE 81; RESP 16; TEMP 36.7; O2SAT 97
[2020-05-02 07:32] LABS: Glucose Point of Care 49 (65-105)
[2020-05-02 07:58] LABS: Glucose Point of Care 99 (65-105)
[2020-05-02] MEDS: amLODIPine BESYLATE 5 MG TABLET 10 MG PO (07:58)
[2020-05-02] MEDS: CYANOCOBALAMIN 1,000 MCG TABLET 1000 MCG PO (07:58)
[2020-05-02] MEDS: lisinopriL 5 MG TABLET PO (07:59)
[2020-05-02] MEDS: ATORVASTATIN 40 MG TABLET 80 MG PO (07:59)
[2020-05-02] MEDS: hydroCHLOROthiazide 25 MG TABLET PO (07:59)
[2020-05-02] MEDS: DONEPEZIL HCL 10 MG TABLET PO (07:59)
[2020-05-02] MEDS: DULoxetine HCL 30 MG CAPSULE.DR PO (07:59)
[2020-05-02] MEDS: INSULIN ASPART (*BKC) 100 UNITS/ML SUB-Q (11:36)
[2020-05-02 11:46] LABS: Glucose Point of Care 240 (65-105)
--- NOTE | 2020-05-02 12:45 | PM.DS ---
DS: Admitting Diagnosis Admitting Diagnosis Admitting Diagnosis: Type 1 diabetes mellitus with ketoacidosis without coma DS: Discharge Diagnosis Discharge Diagnosis (1) Dbfdq-vy-orukkve kidney injury: Qualifiers: Acute renal failure type: unspecified Chronic kidney disease stage: unspecified stage Qualified Code(s): N17.9 - Acute kidney failure, unspecified; N18.9 - Chronic kidney disease, unspecified Code(s): N17.9 - Acute kidney failure, unspecified; N18.9 - Chronic kidney disease, unspecified Status: Acute Assessment and Plan: Creat is 1.5 ? pt is at baseline known to have CKD Stage 2 (2) DKA, type 1: Code(s): E10.10 - Type 1 diabetes mellitus with ketoacidosis without coma Status: Acute Assessment and Plan: Continue insulin pump. states she manages his insulin pump as he has memory issues. They just got it and was using it under endocrinology guidance. Adviced pt not to drink alcholol and to stick to his DM diet. (3) Essential hypertension: Code(s): I10 - Essential (primary) hypertension Status: Chronic Assessment and Plan: Continue home medications DS: Summary Time Spent with Patient Time attestation: Total time spent providing and/or coordinating discharge services:40 minutes on day of discharge Exam Const: General: well developed and other (memory issues, chronically ill appearing ) Nutritional Appearance: well nourished HENMT: Head: normocephalic Neck: Neck: supple Chest: Chest palpation & inspection: normal inspection of the chest Resp: Effort & Inspection: normal respiratory effort Auscultation: clear to auscultation bilaterally Cardio: Jugular venous distension: no JVD Rhythm: regular rhythm Heart sounds: S1 normal heart sound present and S2 normal heart sound present GI: Inspection: normal to inspection Auscultation: normal bowel sounds Skin: General skin exam: normal color and dry skin Neuro: Cranial nerves: Yes CN's II-XII intact bilaterally and Yes Equal, round and reactive pupils present Cognition (Neuro): normal cognition Speech: normal speech Motor exam (neuro): 5/5 motor strength present throughout Extrem: General: normal to inspection Psych: Appearance: grossly normal Mental Status: mental status grossly normal DS: Data Data Completed and Pending Labs on day of discharge: Labs from last 24 hours 05/02/20 05/02/20 05/02/20 11:29 07:55 07:30 WBC RBC Hgb Hct MCV MCH MCHC RDW Plt Count MPV Immature Gran % (Auto) Neut % (Auto) Lymph % (Auto) Mcleod % (Auto) Eos % (Auto) Baso % (Auto) Lymph # (Auto) Mcleod # (Auto) Eos # (Auto) Baso # (Auto) Abs Immat Gran (auto) Absolute Neuts (auto) Absolute Nucleated RBC Nucleated RBC % Sodium Potassium Chloride Carbon Dioxide Anion Gap BUN Creatinine Estim Creat Clear Calc Estimated GFR Glucose POC Capillary Glucose 240 H 99 49 L* Calcium Phosphorus Magnesium 05/02/20 05/02/20 05/02/20 04:48 04:48 00:00 WBC 5.1 RBC 3.07 L Hgb 8.2 L Hct 24.3 L MCV 79.2 L MCH 26.7 MCHC 33.7 RDW 13.3 Plt Count 207 MPV 10.8 H Immature Gran % (Auto) 0.2 Neut % (Auto) 54.8 Lymph % (Auto) 30.5 Mcleod % (Auto) 9.9 H Eos % (Auto) 4.2 Baso % (Auto) 0.4 Lymph # (Auto) 1.54 Mcleod # (Auto) 0.5 Eos # (Auto) 0.2 Baso # (Auto) 0.0 Abs Immat Gran (auto) 0.01 Absolute Neuts (auto) 2.8 Absolute Nucleated RBC 0.0 Nucleated RBC % 0.0 Sodium 138 Potassium 3.9 Chloride 108 H Carbon Dioxide 26 Anion Gap 7.9 BUN 25 H D Creatinine 1.40 H Estim Creat Clear Calc 50 Estimated GFR > 60 Glucose 83 POC Capillary Glucose 163 H Calcium 8.8 Phosphorus 3.7 Magnesium 2.0 05/01/20 05/01/20 16:35 14:47 WBC RBC Hgb Hct MCV MCH M
[2020-05-02 14:40] VITALS: BMI 21.9
== END 2020-05-02 15:21 | disposition home health service (06) | DRG 638 ==
LOC: ANHED 05-01 03:27 → ANHICU 05-01 05:06 → ANH2MED 05-02 12:32 → ANHICU 05-06 08:51
PROVIDERS: Internal Medicine; Admitting Provider Internal Medicine; Emergency Provider General Practice; PCP Internal Medicine; Visit Provider Family Medicine
DX: E10.10 Type 1 diabetes mellitus with ketoacidosis without coma (principal); N17.9 Acute kidney failure, unspecified; D63.1 Anemia in chronic kidney disease; E10.22 Type 1 diabetes mellitus with diabetic chronic kidney disease; I12.9 Hypertensive chronic kidney disease with stage 1 through stage 4 chronic kidney disease, or unspecified chronic kidney disease; N18.2 Chronic kidney disease, stage 2 (mild); I69.311 Memory deficit following cerebral infarction; E78.5 Hyperlipidemia, unspecified; F32.9 Major depressive disorder, single episode, unspecified; Z79.4 Long term (current) use of insulin; Z96.41 Presence of insulin pump (external) (internal); Z86.74 Personal history of sudden cardiac arrest
CPT/HCPCS: 36415; 36600; 80048; 80053; 81001; 82010; 82375; 82805; 82947; 82948; 83036; 83050; 83735; 84100; 85025; 93005; 96361; 96374; 99285; A9270; J1815; J3480; J7030

== ENCOUNTER 2020-12-10 16:25 | Outpatient (CLI) | payer BC, MEDICARE, SELFPAY | END 2020-12-10 16:26 | disposition home or self-care (01) | LOC: ANHCOVIDVC 16:25 | PROVIDERS: PCP Internal Medicine | DX: Z23 Encounter for immunization (principal) | CPT/HCPCS: 0001A; 91300 ==

== ENCOUNTER 2020-12-31 16:31 | Outpatient (CLI) | payer BC, MEDICARE, SELFPAY | END 2020-12-31 16:32 | disposition home or self-care (01) | LOC: ANHCOVIDVC 16:31 | PROVIDERS: PCP Internal Medicine | DX: Z23 Encounter for immunization (principal) | CPT/HCPCS: 0002A; 91300 ==

== ENCOUNTER 2022-04-08 12:51 | Outpatient (CLI) | payer BC, MEDICARE, SELFPAY ==
--- NOTE | 2022-04-08 12:58 | ECHO_ITS ---
Patient Info Name: Nehemias Muse Age: 61 years : 1960 Gender: Male Ht: 72 in Wt: 155 lbs BSA: 1.88 m2 HR: 68 bpm BP: 133 / 78 mmHg Technical Quality: Good Exam Date: 04/08/2022 1:33 PM Exam Location: [facility] Patient Status: Outpatient Admit Date: 04/08/2022 Staff Ordering Physician: Von Walters DO Merchandiser: Kristel So RDCS Attending Provider: Von Walters DO Referring Physician: Romeo TINAJERO; Exam Type: CA echo dop color flow w con Study Info Indications R06.00 - Dyspnea, unspecified Complete two-dimensional, color flow and Doppler transthoracic echocardiogram is performed. Summary 1. Complete two-dimensional, color flow and Doppler transthoracic echocardiogram is performed. 2. Left ventricular chamber dimension is normal. 3. Left ventricular systolic function is normal, estimated at 60-65%. 4. The left ventricular diastolic function is grade I diastolic dysfunction. 5. E/e' 10 is mildly elevated. 6. Global longitudinal strain is mildly abnormal at -16.5%. 7. There is trace mitral valve regurgitation. 8. There is mild tricuspid valve regurgitation. 9. No pulmonary hypertension, estimated pulmonary arterial systolic pressure is 30 mmHg. Left Ventricle E/e' 10 is mildly elevated. Global longitudinal strain is mildly abnormal at -16.5%. Left ventricular chamber dimension is normal. Left ventricular systolic function is normal, estimated at 60-65%. The left ventricular diastolic function is grade I diastolic dysfunction. Right Ventricle Right ventricular chamber dimension is normal. Right ventricular systolic function is normal. Left Atria Left atrial chamber dimension is normal. Right Atria Right atrial chamber dimension is normal. Aortic Valve The aortic valve is trileaflet. There is no aortic valve stenosis. There is no aortic valve regurgitation. Pulmonic Valve There is no pulmonic regurgitation. Mitral Valve There is no mitral valve stenosis. There is trace mitral valve regurgitation. Tricuspid Valve There is mild tricuspid valve regurgitation. No pulmonary hypertension, estimated pulmonary arterial systolic pressure is 30 mmHg. Pericardium/Pleural There is no pericardial effusion. Inferior Vena Cava Normal inferior vena cava with >50% collapse upon inspiration consistent with normal right atrial pressure, 5 mmHg. Aorta The aortic root size at the sinus of Valsalva is normal. Left Ventricular Outflow Tract Name Value Normal LVOT 2D LVOT Diameter 2.01 cm LVOT Doppler LVOT Peak Gradient 4 mmHg LVOT Mean Gradient 2 mmHg LVOT VTI 18.32 cm LVOT VTI/AV VTI Ratio 0.82 LVOT Stroke Volume 58.35 ml LVOT CO 11.50 l/min LVOT CI 6.10 L/min/m2 Pulmonic Valve Name Value Normal
== END 2022-04-08 12:52 | disposition home or self-care (01) ==
LOC: ANHCARD 12:56
PROVIDERS: PCP Internal Medicine; Visit Provider Internal Medicine Cardiovascular Disease
DX: R06.00 Dyspnea, unspecified (principal)
CPT/HCPCS: 93306; C8929

== ENCOUNTER 2022-09-23 01:20 | Day surgery (SDC) | payer BC, MEDICARE, SELFPAY ==
[2022-09-13 15:09] VITALS: BMI 22.4
--- NOTE | 2022-09-22 12:48 | PM.HPGS ---
History of Present Illness History of Present Illness Consent: Risks, benefits, and alternatives have been discussed and questions answered. Patient agrees to proceed with procedure. Chief complaint: neoplasm screening Narrative: Nehemias Muse is a 61 year old male Referred for colon cancer screening. Review of Systems Review of Systems: All systems reviewed & are unremarkable except as noted in HPI and below PMFSH Past Medical History Medical History Anemia in chronic kidney disease Cardiac arrest (06/30/15) In the setting acute kidney injury and hyperkalemia. Chronic kidney disease, stage 3 (moderate) Baseline creatinine is around 1.50. Depression Dyslipidemia Essential hypertension Other abnormalities of gait and mobility Stroke With residual memory loss. Type 1 diabetes mellitus Hemoglobin A1c was 9.4% in September 2019. Surgical History Surgical History History of cardiac catheterization (~06/2015) Clean coronary arteries. No history of previous surgery Family History Family History Sibling Diabetes mellitus Hypertension Asthma Cerebrovascular accident Family history of hepatitis Malignant neoplasm of prostate Family history of attention deficit hyperactivity disorder (ADHD) Father Family history of alcoholism Family history of malignant neoplasm Mother Family history of arthritis, Onset Age: 85 Family history of malignant neoplasm Family history of heart disease in male family member before age 55 Social History Social History Social History: The patient is and lives at home with his in [place]. They have no children. 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 He is a lifelong nonsmoker and denies alcohol and illicit substance abuse. He designates his , Gely Muse, as his surrogate decision maker and he wishes to be a full code. Smoking status: Never smoker Second hand tobacco smoke exposure: No Alcohol intake: never Substance use: never Living arrangements: with family Gender identity (if verbalized by the patient): Male Spiritual care concerns: No Meds Home Medications and Allergies Home Medications Medication Instructions Recorded Confirmed Type donepezil 10 mg tablet 10 mg PO DAILY 09/24/19 09/13/22 History duloxetine 30 mg capsule,delayed 30 mg PO DAILY 09/24/19 09/13/22 History release sprinkle blood-glucose meter (Blood Glucose #1 ea 11/22/19 09/13/22 Rx Monitoring kit) hydrochlorothiazide 25 mg tablet 25 mg PO DAILY #90 tabs 02/02/22 09/13/22 Rx lisinopril 5 mg tablet 5 mg PO DAILY #90 tabs 02/02/22 09/13/22 Rx blood sugar diagnostic #300 ea 02/10/22 09/13/22 Rx lancets (OneTouch UltraSoft #300 ea 02/10/22 09/13/22 Rx Lancets) atorvastatin 80 mg tablet 80 mg PO DAILY #90 tabs 03/08/22 09/13/22 Rx pen needle, diabetic 31 gauge x #400 ea 05/03/22 09/13/22 Rx 5/16 (BD Ultra-Fine Short Pen Needle) blood sugar diagnostic (OneTouch #100 ea 08/09/22 09/13/22 Rx Ultra Test strips) blood-glucose sensor (Dexcom G6 See Rx Instructions .Route 08/09/22 09/13/22 Rx Sensor device) .COMPLEX #9 ea blood-glucose transmitter (Dexcom See Rx Instructions .Route 08/09/22 09/13/22 Rx G6 Transmitter device) .COMPLEX #1 ea glucagon HCl 1 mg solution for 1 mg subcut ONCE PRN hypoglycemia 08/09/22 09/13/22 Rx injection (Glucagon (HCl) #1 ea Emergency Kit) insulin lispro 100 unit/mL See Rx Instructions subcut 08/09/22 09/13/22 Rx subcutaneous pen (Humalog KwikPen TIDWMEAL 90 days #30 mL (U-100) Insulin) lancets 33 gauge (OneTouch Delica #100 ea 08/09/22 09/13/22 Rx Plus Lancet) aspirin 81 mg capsule 81 mg PO DAILY 09/13/22 09/13/22 History docusate sodium 50 mg capsule 50 mg PO DAILY
[2022-09-23 06:54] VITALS: BP 118/69; PULSE 99; RESP 18; TEMP 36.5; O2SAT 100
[2022-09-23] MEDS: LACTATED RINGERS 1,000 ML 150 ML IV CONT (07:06)
[2022-09-23 07:20] LABS: Glucose Point of Care 145 mg/dl (65-105)
--- NOTE | 2022-09-23 07:39 | WPDANESEPPF ---
Anes - Initial Pre Proc Eval Procedure: Operation Date: 09/23/22 08:00 Proposed Procedures p Screening Colonoscopy - Jonathan Light MD Date/Time: 09/23/22 07:39 Surgeon: Jonathan Light MD Pre Op Diagnosis: neoplasm screening Patient Data Age: 61 Gender: M Height: 1.83 m Weight: 72.8 kg Last Vital Signs Temp 36.5 C 09/23/22 06:54 Pulse 99 09/23/22 06:54 Resp 18 09/23/22 06:54 BP 118/69 09/23/22 06:54 Pulse Ox 100 09/23/22 06:54 O2 Del Method Room Air 09/23/22 06:54 Allergies Allergy/AdvReac Type Severity Reaction Status Date / Time No Known Allergies Allergy Verified 09/13/22 14:57 Home Medications Medication Instructions Recorded Confirmed Type donepezil 10 mg tablet 10 mg PO DAILY 09/24/19 09/13/22 History duloxetine 30 mg capsule,delayed 30 mg PO DAILY 09/24/19 09/13/22 History release sprinkle blood-glucose meter (Blood Glucose #1 ea 11/22/19 09/13/22 Rx Monitoring kit) hydrochlorothiazide 25 mg tablet 25 mg PO DAILY #90 tabs 02/02/22 09/13/22 Rx lisinopril 5 mg tablet 5 mg PO DAILY #90 tabs 02/02/22 09/13/22 Rx blood sugar diagnostic #300 ea 02/10/22 09/13/22 Rx lancets (OneTouch UltraSoft #300 ea 02/10/22 09/13/22 Rx Lancets) atorvastatin 80 mg tablet 80 mg PO DAILY #90 tabs 03/08/22 09/13/22 Rx pen needle, diabetic 31 gauge x #400 ea 05/03/22 09/13/22 Rx 5/16 (BD Ultra-Fine Short Pen Needle) blood sugar diagnostic (OneTouch #100 ea 08/09/22 09/13/22 Rx Ultra Test strips) blood-glucose sensor (Dexcom G6 See Rx Instructions .Route 08/09/22 09/13/22 Rx Sensor device) .COMPLEX #9 ea blood-glucose transmitter (Dexcom See Rx Instructions .Route 08/09/22 09/13/22 Rx G6 Transmitter device) .COMPLEX #1 ea glucagon HCl 1 mg solution for 1 mg subcut ONCE PRN hypoglycemia 08/09/22 09/13/22 Rx injection (Glucagon (HCl) #1 ea Emergency Kit) insulin lispro 100 unit/mL See Rx Instructions subcut 08/09/22 09/13/22 Rx subcutaneous pen (Humalog KwikPen TIDWMEAL 90 days #30 mL (U-100) Insulin) lancets 33 gauge (OneTouch Delica #100 ea 08/09/22 09/13/22 Rx Plus Lancet) aspirin 81 mg capsule 81 mg PO DAILY 09/13/22 09/13/22 History docusate sodium 50 mg capsule 50 mg PO DAILY 09/13/22 09/13/22 History (Stool Softener) insulin glargine-yfgn 100 unit/mL 16 unit subcut HS 09/13/22 09/13/22 History (3 mL) subcutaneous pen (Semglee (insulin glargine-yfgn) Pen) amlodipine 10 mg tablet (Norvasc) 10 mg PO DAILY #90 tabs 09/14/22 Rx Laboratory Tests 09/23/22 07:00 POC Capillary Glucose 145 mg/dl H mg/dl (65-105) Patient hx anesthesia problems: none Family hx anesthesia problems: none Results Review: All pre-operative results and documents have been reviewed as part of the pre-operative evaluation. [facility] Past Medical History Medical History Anemia in chronic kidney disease Cardiac arrest (06/30/15) In the setting acute kidney injury and hyperkalemia. Chronic kidney disease, stage 3 (moderate) Baseline creatinine is around 1.50. Depression Dyslipidemia Essential hypertension Other abnormalities of gait and mobility Stroke With residual memory loss. Type 1 diabetes mellitus Hemoglobin A1c was 9.4% in September 2019. Surgical History Surgical History History of cardiac catheterization (~06/2015) Clean coronary arteries. No history of previous surgery Family History Family History Sibling Diabetes mellitus Hypertension Asthma Cerebrovascular accident Family history of hepatitis Malignant neoplasm of prostate Family history of attention deficit hyperactivity disorder (ADHD) Father Family history of alcoholism Family history of malignant neoplasm Mother Family history of arthritis, Onset Age: 85 Family history of malwhitney
[2022-09-23 08:11] VITALS: BP 87/56; PULSE 77; RESP 17; O2SAT 100
[2022-09-23 08:17] LABS: Glucose Point of Care 138 mg/dl (65-105)
[2022-09-23 08:21] VITALS: BP 112/68; PULSE 81; RESP 22; O2SAT 100
[2022-09-23 08:31] VITALS: BP 139/84; PULSE 83; RESP 22; O2SAT 100
== END 2022-09-23 08:41 | disposition home or self-care (01) ==
PROVIDERS: PCP Internal Medicine; Visit Provider Internal Medicine Gastroenterology
PROC: 0DJD8ZZ Inspection of Lower Intestinal Tract, Via Natural or Artificial Opening Endoscopic (ICD-10-PCS; CPT 45378; principal; 2022-09-23 08:00)
DX: Z12.11 Encounter for screening for malignant neoplasm of colon (principal); I12.9 Hypertensive chronic kidney disease with stage 1 through stage 4 chronic kidney disease, or unspecified chronic kidney disease; E10.22 Type 1 diabetes mellitus with diabetic chronic kidney disease; N18.30 Chronic kidney disease, stage 3 unspecified; D63.1 Anemia in chronic kidney disease; E78.5 Hyperlipidemia, unspecified; F32.A Depression, unspecified; Z79.4 Long term (current) use of insulin; Z79.82 Long term (current) use of aspirin
CPT/HCPCS: 45378; 82948; J2001; J2704; J7120

== ENCOUNTER 2022-10-11 08:00 | Outpatient (RCR) | payer BC, MEDICARE, SELFPAY ==
--- NOTE | 2022-08-24 09:07 | PTOPEVAL1 ---
Assessment and note entered by Marie Reno, PT Evaluation Information Assessment Status Evaluation Diagnosis decreased gait and mobility skills Onset about one year Subjective Information reports at home, pt does not do anything; no falls at home, but trips and stumbles; goes short distances in community, but does not go shopping with ; when traveling/flying use a wheelchair does not do any exercises or walking for fitness at home; voiced frustration over Kamran not walking and decreased activity level; has had PT in the past about one year ago, but does not do the exercises anymore; he is indep with bathing and dressing, but always home; she works from home and is always there; he stays home and does not have visitors; Reported Pain Level Pain Score 0: Self Report Assessment PT Clinical Summary Kamran has the diagnosis of decreased gait and mobility skills. His Gely was present during the eval and gave history and current situation information. Due to dementia and safety, she is with him all of the time. He is not very active, sits in the recliner and watches TV, with occasional outings and does not have any visitors. Gely voiced frustration that pt is not more active. She states she cannot get him to do activities. Discussed with her: adult day care or helper coming into home to give her some relief and assistance; word search puzzles, books with photos, music, having him assist with chopping vegetables/cooking, writing grocery list/taking notes; she stated she cannot find anything to get him moving. With the evaluation, he has decreased B ankle strength and motor control, with poor walking pattern; 5 reps sit/stand and TUG are WNL scores; Gold balance and gait score is 46/56; he is not able to single leg standing--effecting his gait and balance. Skilled PT services are indicated to increase B ankle strength and LE motor control, increase gait balance and therapeutic activity to increase safety with mobility and decrease risk for falls. Plan of Care Interventions Neuro Re-education,Patient/Caregiver Education, Therapeutic Activities,Therapeutic Exercise PT Services Indicated Yes Treatment Frequency and
--- NOTE | 2022-09-13 08:13 | PCPTNOTE ---
Patient called & cancelled scheduled appointment this date due to his being sick. His brings him to therapy sessions.
--- NOTE | 2022-09-28 14:19 | PCPTNOTE ---
pt did not show for today's reevaluation; called and left voice mail message;
--- NOTE | 2022-10-11 08:45 | PTOPDC ---
Assessment and note entered by Marie Reno, PT Evaluation Information Assessment Status Discharge Diagnosis decreased gait and mobility skills Onset about one year Subjective Information Kamran & reports: have not had any falls, but loses his balance alot; she has not taken him out in public, due to him being unsteady; have not been using the cane, have one, but he will not use it; he does not think that he is unsteady and he does not need the cane; Reported Pain Level Pain Score 0: Self Report Assessment PT Clinical Summary Kamran has received 8 PT sessions. His reports frustration over Kamran not wanting to do anything but sit and watch TV; she does not feel safe taking him anywhere because he is not safe; he has not has any falls; she cannot do anything because he cannot go with her. And he will not use the cane or walker. Discussed with her options of day care services, having family or others help her care for him. And to realize, he has decreased memory and does not remember to use the cane and is not aware of his deficits. Compared to the initial evaluation, his strength and mobility are about the same. He has been educated and issued a home exercise program. He was cooperative during PT sessions, and did the therapeutic activities, following commands. But, he did not carry over any of the exercises or balance activities at home. The goals were not achieved, except--NO falls and education for HEP. Discharge PT services. Plan of Care PT Services Indicated No
== END 2022-11-08 08:40 | disposition home or self-care (01) ==
LOC: ANHPT 08:00
PROVIDERS: PCP Internal Medicine; Visit Provider Internal Medicine Endocrinology, Diabetes & Metabolism
DX: R26.89 Other abnormalities of gait and mobility (principal)
CPT/HCPCS: 97110; 97112; 97161; 97530; 99199